=== PATIENT | male | born 1985 | race Caucasian/White ===

== ENCOUNTER 2018-05-06 21:25 | Emergency (ER) | payer OTHER ==
[2018-05-06 22:50] LABS: #Eosinphils 0.1 thou/uL (0.0-0.7); #Monocytes 0.9 thou/uL (0.11-0.59); #Neutrophils 4.3 thou/uL (1.40-6.50); %Basophils 0.6 % (0.0-1.0); %Lymphocytes 26.8 % (21.0-51.0); %Monocytes 11.9 % (0.0-10.0); %Neutrophils 58.7 % (42.0-75.0); Hemoglobin 15.5 g/dL (14.0-18.0); Mean Corpuscular Hemoglobin 27.7 pg (27.0-31.0); Mean Corpuscular Volume 79.2 fL (78.0-98.0); Mean Platelet Volume 7.3 fL (7.4-10.4); Platelet Count 199 thou/uL (130-400); RBC Distribution Width 11.1 % (11.5-14.5); White Blood Cell (WBC) Count 7.4 thou/uL (4.8-10.8)
[2018-05-06 23:03] LABS: ALT (SGPT) 13 U/L (8-55); AST (SGOT) 15 U/L (5-34); Albumin 4.4 g/dL (3.5-5.0); Alkaline Phosphatase 71 U/L (40-150); Anion Gap 15 mmol/L (10-20); BUN (Urea Nitrogen) 12 mg/dL (8.9-20.6); Bilirubin, Total 0.7 mg/dL (0.2-1.2); Calc. Creatinine Clearance 0 mL/min (70-130); Calcium 9.7 mg/dL (7.8-10.44); Carbon Dioxide 23 mmol/L (22-29); Chloride 104 mmol/L (98-107); Estimated GFR-MDRD Greater than 90; Globulin 2.9 g/dL (2.4-3.5); Glucose 96 mg/dL (70-105); Lipase 36 U/L (8-78); Potassium 3.8 mmol/L (3.5-5.1); Protein, Total 7.3 g/dL (6.0-8.3); Sodium 138 mmol/L (136-145)
[2018-05-06] MEDS ORDERED: Ketorolac Tromethamine 30 MG/ML VIAL ONE (23:20)
[2018-05-06] MEDS ORDERED: Ondansetron HCl/PF 4 MG/2 ML Vial ONE (23:20)
[2018-05-06 23:35] LABS: Bilirubin Negative (Negative); Blood, Urine Negative (Negative); Clarity Slightly Cloudy (Clear); Glucose, Urine (Dipstick) Negative (Negative); Leukocyte Negative (Negative); Nitrite Negative (Negative); Protein, Urine (Dipstick) Negative (Neg-Trace); Specific Gravity, Urine 1.015 (1.005-1.030); Urobilinogen 0.2 mg/dL (0.2-1.0)
--- NOTE | 2018-05-06 23:48 | CT ---
CT ABDOMEN AND PELVIS WITHOUT CONTRAST: 05/06/18 HISTORY: Diffuse abdominal pain, nausea, vomiting, diarrhea, cramping and fever. History of gastric sleeve. COMPARISON: None. FINDINGS: Lung bases are clear. No pericardial effusion. Prior gastric surgery. There is trace free fluid in the pelvis. Mild diverticular disease sigmoid colon without active curre nt inflammation. The appendix is felt to be visualized and appears normal. No dilated air filled loops of large or small bowel. Low grade distal small bowel mesenteric fluid. Small bowel loops measure up to 3 cm in size. There are no collapsed distal small bowel loops that [place] ggests an obstruction. No nephroureterolithiasis or hydroureteronephrosis. No secondary evidence of recently passed stone. The aortoiliac contour is nonaneurysmal. No retroperitoneal adenopathy. Mild facet arthrosis lower lumbar spine. IMPRESSION: 1. Low grade mesenteric edema distal small bowel as well as trace free fluid in the pelvis. Find ings can be seen with an ileus and enteritis given the distal small bowel loops measuring just over 3 cm in size. No collapsed distal small bowel loop to suggest an obstruction. 2. No nephroureterolithiasis or hydroureteronephrosis. No secondary evidence of recently passed stone. POS: [facility]
== END 2018-05-07 00:24 | disposition home or self-care (01) ==
LOC: SCSER 21:25
DX: K52.9 Noninfective gastroenteritis and colitis, unspecified (principal)
CPT/HCPCS: 74176; 80053; 81003; 83605; 83690; 85025; 87045; 87046; 87177; 87449; 87899; 96361; 96374; 96375; J1885; J2405

== ENCOUNTER 2020-03-15 13:21 | Emergency (ER) | payer BC, OTHER, SELFPAY ==
[2020-03-15] MEDS ORDERED: Bacitracin 1 PK ONE (13:47)
== END 2020-03-15 15:30 | disposition home or self-care (01) ==
LOC: ERS 13:21
DX: S51.852A Open bite of left forearm, initial encounter (principal); I10 Essential (primary) hypertension; W54.0XXA Bitten by dog, initial encounter
CPT/HCPCS: 99283

== ENCOUNTER 2024-07-07 09:34 | Outpatient (CLI) | payer OTHER ==
[2024-07-07] MEDS ORDERED: E-Z-HD 98% W/W 340GM BOT (x-ray ONLY) ONE (10:00)
[2024-07-07] MEDS ORDERED: Barium Sulfate 96% 176 GM BOT (xray ONLY) ONE (10:00)
[2024-07-07] MEDS ORDERED: MD-Gastroview 120 ML BOT ONE (10:17)
== END 2024-07-07 09:35 | disposition home or self-care (01) ==
LOC: RAD 09:34
PROVIDERS: ATTEND Surgery
DX: R63.5 Abnormal weight gain (principal); Z98.890 Other specified postprocedural states
CPT/HCPCS: 74240; Q9963